=== PATIENT | female | born 1985 | race Two or more races ===

== ENCOUNTER 2017-02-15 23:55 | Emergency (ER) | payer SELFPAY ==
[~2017-02-15] VITALS: Ht 170.2 cm; Wt 59.0 kg
[2017-02-16 01:41] VITALS: BP 124/76
--- NOTE | 2017-02-16 04:41 | NUR ---
PT RECEIVED FROM HOME BIB FAMILY C/O FEVER OF 105/HEADACHE/EYE HURTS 06/21. NO SOB NOTED AT THIS TIME WITH ADEQUATE CHEST RISE/FALL. A/OX4 VSS NAD. WILL CONTINUE TO MONITOR FOR ANY CHANGES
== END 2017-02-16 04:59 | disposition home or self-care (01) ==
LOC: ER 23:58
DX: J06.9 Acute upper respiratory infection, unspecified (principal); R50.9 Fever, unspecified; Z88.6 Allergy status to analgesic agent
CPT/HCPCS: 99281; A4606; A6402; Z7610; Z7502